=== PATIENT | female | born 1985 | race Caucasian/White ===

== ENCOUNTER 2019-06-04 17:48 | Emergency (ER) | payer OTHER ==
[~2019-06-04] VITALS: Ht 165.1 cm; Wt 58.0 kg
[2019-06-04 19:51] VITALS: BP 121/79
== END 2019-06-04 19:54 | disposition home or self-care (01) ==
LOC: ER 18:49
DX: S93.601A Unspecified sprain of right foot, initial encounter (principal); Z91.013 Allergy to seafood; W22.8XXA Striking against or struck by other objects, initial encounter; Y93.89 Activity, other specified; Y92.89 Other specified places as the place of occurrence of the external cause; Y99.8 Other external cause status
CPT/HCPCS: 73630; 99283